=== PATIENT | male | born 1965 | race Caucasian/White ===

== ENCOUNTER 2016-10-07 21:43 | Emergency (ER) | payer OTHER ==
[~2016-10-07 21:43] MED LIST: LISI30TA5 PO
[2016-10-07 21:58] VITALS: BP 156/89; PULSE 107; RESP 14; O2SAT 97
--- NOTE | 2016-10-07 22:01 | ED.REPORT ---
HPI-Chest Pain 40 and Over Date of Service Oct 07, 2016 ED Provider: Dillon Sinclair MD Patient is a 51 year old male with a history of hypertension who presents to the ED complaining of palpitations onset just prior to arrival. Per the patient' s significant other, the patient's pulse was 143 prior to arrival to the ED. However his rate has decreased to the low 100s on arrival to the ED. The patient reports associated shortness of breath and chest pressure when he experienced the palpitations, especially with deep breath. Patient reports having 2x prior episodes of palpitations in the past, but it has been several years since his last episode. He reports associated general malaise, has "clammy " hands and that he has been nauseated all day. He reports normal PO intake. He denies fever, chills, vomiting, chest pain, and cough. Per the patient's significant other, he had an extra cup of coffee this morning but he does not consume energy drinks. Patient denies smoking cigarettes, marijuana, or any drug use. Patient is on Lisinopril for his hypertension but states that he has been wanting to change this medication. Nursing Notes Stated Complaint: PALPITATIONS, NAUSIA Chief Complaint: Dysrhythmia/Cardiac Nursing Notes Reviewed: Yes Allergies: Coded Allergies: hydrocodone (Verified Allergy, Severe, peeling of skin, 11/17/13) Miscellaneous Medications Lisinopril (Lisinopril) 30 Mg Tablet 30 MG PO VERIFY DOSE General Time Seen by MD: 21:59 Chief Complaint Other (palpitations) Hx Obtained From: Patient Arrived By: Walk-in Sudden in Onset?: Yes Onset Occurred: 1 - 4 hours ago Symptom Duration: Since onset Location: : Chest left: Chest right Quality: Pressure Severity: Current: Mild Severity: Maximum: Mild Recent Healthcare: No recent doctor visit, No recent hospitalization Similar Sx Previous: Yes Past Medical History Past Medical History hypertension Reports: GERD Past Surgical History carpal tunnel T&A Reports: Appendectomy Smoking History Never Smoker Social History Alcohol Use: "Social" Drug Use: Denies drug use Other Social History: Good social support, , Local resident Ambulatory Status Independent Review of Systems Constitutional: Reports: Malaise, Denies: Chills, Fever Respiratory: Reports: Shortness of breath, Denies: Non-productive cough Cardiovascular: Reports: Dyspnea on exertion, Denies: Chest pain GI: Reports: Nausea, Denies: Vomiting Complete sys rev & neg: except as marked. Physical Exam Initial Vital Signs Vital Signs (First) Date Time Temp Pulse Resp B/P Pulse Ox O2 Delivery O2 Flow Rate FiO2 10/07/16 21:58 36.9 107 14 156/89 97 Room Air 10/07/16 22:05 2 Initial VS: Reviewed, Vital signs abnormal General/Constitutional: Awake, Alert Distress / Hydration: Positive: Distress mild overweight Respiratory / Chest: Breath sounds NL, Breath sounds = bilat, No respiratory distress, No rales, No rhonchi, No wheezing Cardiovascular: Regular rhythm, Heart sounds NL, No murmurs Heart Rate / Rhythm: Positive: Tachycardia Abdomen: Atraumatic, Soft, Non-tender Neck: Supple, No JVD Lower Extremity / Pelvis / MS: Atraumatic, Non-tender, No deformity trace bilateral ankle edema Skin: Color NL, No rash, Warm Color / Condition: Negative: Diaphoresis present (clammy) Neurologic: Oriented X3, Speech NL, No motor deficits, No sensory deficits Head / Eyes: Atraumatic, Normocephalic, PERRL, EOMI ENT: Atraumatic, Airway patent, Mucous membranes moist Interpretation & Diagnostics Lab Results Interpretation Result Diagram: 10/07/16 21410/07/16 214 Test 10/07/16 21:45 10/08/16 00:13 White Blood Count 8.0th/mm3 (3.8-10.1) Red Blood Count 5.52mil/mm3 (4.40-5.80) Hemoglobin 15.4g/dL (13.8-17.2) Hematocrit 45.4% (41.0-50.0) Mean Corpuscular Volume 82.2fL (81-100) Mean Corpuscular Hemoglobin 27.9pg (27.0-35.0) Mean Corpuscular Hemoglobin Concent 33.9% (32.0-37.0) Red Cell Distribution Width 13.6% (12.3-15.4) Platelet Count 201bil/L (150-400) Neutrophils (%) (Auto) 56.7% (40-74) Lymphocytes (%) (Auto) 32.8% (14-46) Monocytes (%) (Auto) 6.4% (4-12) Eosinophils (%) (Auto) 3.1% (0-5) Basophils (%) (Auto) 0.6% (0-3) D-Dimer < 0.50mg/L FEU (<0.50) Sodium Level 137mEq/L (134-144) Potassium Level 3.6mEq/L (3.5-5.2) Chloride Level 96mEq/L (97-108) Carbon Dioxide Level 21mmol/L (18-29) Blood Urea Nitrogen 13mg/dL (6-24) Creatinine 0.91mg/dL (0.76-1.27) Estimat Glomerular Filtration Rate 94mL/min (>59) Glucose Level 149mg/dL (60-99) Calcium Level 9.8mg/dL (8.5-10.1) Magnesium Level 1.9mg/dL (1.6-2.6) Total Bilirubin 1.0mg/dL (0.0-1.2) Aspartate Amino Transf (AST/SGOT) 26U/L (0-50) Alanine Aminotransferase (ALT/SGPT) 39U/L (0-44) Alkaline Phosphatase 47U/L (25-150) Total Protein 7.5g/dL (6.4-8.4) Albumin 4.8g/dL (3.4-5.0) Troponin T < 0.010ug/L (0.0-0.011) Lab values outside NL range: no clinical significance. ECG Interpretation ECG Interpretation: Sinus tachycardia rate 104 Time: 21:50 Interpreted by: ED physician ECG Interpretation: Sinus tachycardia rate 103 Interpreted by: ED physician X-Ray Chest Interpretation Chest Xray Interpretation: Impression: No acute cardiopulmonary process. View: Portable Interpretation / Wet Read by: Wet read ED physician Re-Eval/Medical Decision Med Decision/Clinical Course The exact cause of his chest pain is not ascertained. Cardiac workup was negative to include 2 negative troponins and 2 negative EKGs. Chest x-ray was normal. He had no evidence of pneumonia or pneumothorax. D-dimer was negative. He will be discharged home to follow up with his primary provider. He will discuss stress testing with his primary provider. Source of Hx: Old records Time of Eval: 22:54 Patient Status: Condition improved Re-Evaluation/Progress Note: Rechecked patient whose condition has improved. Time of Eval: 23:45 Patient Status: Condition improved Re-Evaluation/Progress Note: Rechecked patient who reports that his chest pain is relieved. He reports itching from his medication and will be given Benadryl. Time of Eval: 01:55 Patient Status: Condition improved Re-Evaluation/Progress Note: Rechecked patient. Repeat troponin and EKG were negative. Discussed plan for treatment and discharge. The patient understands and agrees to the plan for discharge. All questions were addressed. Counseled Regarding: Diagnosis, Lab results, Need for follow-up, When/why to return to ED Discharge & Departure Primary Impression: Chest pain with low risk for cardiac etiology Disposition: Home Discharge Condition All VS Reviewed: Yes Condition: Stable Patient Instructions: Chest Pain (ED) Additional Instructions: Exact cause of your chest pain is uncertain. There does not appear to be serious illness involving the heart or lungs at this time. There is no pneumonia, no collapsed lung, no evidence of blood clots in the lung. The heart evaluation is normal to include to normal troponin enzyme tests and 2 normal EKGs. Follow-up with your primary doctor for further evaluation. Talk to your regular doctor about getting a treadmill test to further ensure that there are no heart problems. Referrals: Jerod Gayle MD (PCP) Scribe Attestation Portions of this note were transcribed by Romana Quick and Sulema Bernal. I, Dr. Sinclair personally performed the history, physical exam and medical decision-making; I reviewed and confirmed the accuracy of the information in the transcribed note. Signed by: Romana Quick and Sulema Bernal, Scribe, and [phone]. copies to: Jerod Gayle MD, Howard L MD Oct 07, 2016 22:01 Sophy Quick Oct 07, 2016 22:10 Sulema Bernal Oct 08, 2016 00:47
[2016-10-07 22:04] LABS: BASOPHILS % (AUTO) 0.6 % (0-3); EOSINOPHILS % (AUTO) 3.1 % (0-5); MONOCYTES % (AUTO) 6.4 % (4-12); Mean Corpuscular Hemoglobin 27.9 pg (27.0-35.0); Mean Corpuscular Volume 82.2 fL (81-100); NEUTROPHILS % (AUTO) 56.7 % (40-74); Platelet Count 201 bil/L (150-400)
[2016-10-07 22:05] VITALS: BP 147/76; PULSE 102; RESP 15; O2SAT 99
[2016-10-07] MEDS ORDERED: 0.9% Sodium Chloride 1,000 ML IV ONE (22:10)
[2016-10-07 22:35] LABS: TROPONIN T < 0.010 ug/L (0.0-0.011)
[2016-10-07 22:46] LABS: Magnesium 1.9 mg/dL (1.6-2.6)
[2016-10-07 23:18] VITALS: BP 138/78; PULSE 97; RESP 15; O2SAT 94
[2016-10-08 02:11] VITALS: BP 120/85; PULSE 84; RESP 16; O2SAT 93
--- NOTE | 2016-10-08 09:01 | DRSVH ---
PROCEDURE: X-RAY CHEST ONE VIEW, PORTABLE ([id number]) INDICATIONS: palpitations TECHNIQUE: One view of the chest was acquired. COMPARISON: [facility], , CHEST 1VW (PORTABLE), 08/25/2006, 23:56. FINDINGS: Surgical changes and devices: None. Lungs and pleura: No pleural effusions or pneumothorax. Lungs are clear. Mediastinum: Mediastinal contours appear normal. Heart size is normal. Bones and chest wall: No suspicious bony lesions. Overlying soft tissues appear unremarkable. IMPRESSION: No acute cardiopulmonary disease. Dictated by: Scott Stevenson [facility] Interpreted: Karrie Mercado MD on 10/08/2016 at 9:01 Transcribed by: QUINN on 10/08/2016 at 9:01 Approved by: Karrie Mercado MD, PhD on 10/08/2016 at 17:17
== END 2016-10-08 02:12 | disposition home or self-care (01) ==
LOC: SED 21:43
DX: R07.89 Other chest pain (principal); I10 Essential (primary) hypertension; K21.9 Gastro-esophageal reflux disease without esophagitis; Z88.5 Allergy status to narcotic agent
CPT/HCPCS: 36415; 71010; 80053; 83735; 84484; 85025; 85378; 93005; 96360; 99285; J1200; J2060; J7030